=== PATIENT | female | born 1960 | race Caucasian/White ===

== ENCOUNTER 2017-01-29 06:50 | Emergency (ER) | payer OTHER, BC ==
[~2017-01-29] VITALS: Ht 157.5 cm; Wt 109.2 kg
[~2017-01-29 06:50] MED LIST: ADULT LOW DOSE81 M1 PO; ATIVAN1 MG PO; ATIVAN2 MG PO; B12 HEALTH1000 MCG/1 PO; BOTOX100 UNITS IJ; BUMEX0.5 MG PO; BUTRANS1 EAC1 TP; CARDIZEM CD120 MG PO; CEFADROXIL500 MG PO; CELEBREX200 MG PO; CELEBREX50 MG PO; CELEXA40 MG PO; CENTRUM CHEWAB1 EACH PO; CENTRUM COMPLE1 EACH PO; CEPHALEXIN500 MG PO; COLCHICINE; COLCHICINE0.6 MG PO; COLCRYS0.6 MG PO; COREG12.5 M1 PO; COREG25 M1 PO; COREG6.25 MG PO; COUMADIN,JANTOV10 MG PO; COUMADIN10 MG PO; COUMADIN5 M1 IV; COUMADIN5 MG PO; CRESTOR10 MG PO; CYANOCOBAL1000 MCG/2 IM; CYMBALTA30 MG PO; DEPAKOTE ER; DEPAKOTE ER500 MG PO; DEPAKOTE250 MG PO; DEPAKOTE500 MG PO; DIGOXIN125 MCG PO; DURICEF500 MG PO; ELIQUIS2.5 MG PO; ESOMEPRAZOLE MA40 MG PO; FERROUS SULFAT325 MG PO; FIORICET 50-301 EACH PO; FISH OIL; FISH OIL 1,0001 EAC7 PO; FISH OIL SOFTG1 EACH PO; FLEXERIL10 MG PO; FLONASE16 G1 BOTH NARES; HYDROXYCHLOROQUINE; IRON325 MG PO; KCL; LASIX20 MG PO; LASIX40 MG PO; LASIX80 MG PO; LEVSIN0.125 MG PO; LIDODERM 5% P1 PATCH TD; LOTENSIN20 M1 PO; LOTENSIN20 MG PO; LOTENSIN40 MG PO; LOVASTATIN40 MG PO; LOVENOX40 MG/0.4 SC; MIRALAX17 GM PO; MIRALAX255 GM PO; MORPHINE SULFAT15 M1 PO; MOTION SICKNESS25 M4 PO; MOVE IT ALONG100 MG PO; MULTI VITAMIN1 EACH PO; NEXIUM40 MG PO; NORCO 5/3251 TABLET PO; OMEPRAZOLE20 MG PO; OSTERA TABLET1 EACH PO; PLAQUENIL200 MG PO; POTASSIUM CHLO20 MEQ PO; PREVACID30 MG PO; PROMETHAZINE HC25 M1 PO; RISPERDAL0.5 MG PO; RISPERDAL2 MG PO; RISPERIDONE0.5 MG PO; SINGULAIR10 MG PO; SPIRIVA1 INHALATI IH; SPIRONOLACTONE25 MG PO; SYMBICORT60 INHALAT IH; SYNTHROID112 MCG PO; SYNTHROID175 MCG PO; TRAZODONE HCL50 MG PO; TYLENOL EXTRA500 MG PO; VITAMIN B PO; VITAMIN B-1100 MG PO; VITAMIN B1,100 MG/ML IM; VITAMIN D1000 INTUN PO; VITAMIN D3; VITAMIN D31000 UNIT PO; VOLTAREN 1% GE100 GM PO; VOLTAREN 1% GE100 GM TP; Vitamin B-12 PO; WELLBUTRIN XL300 MG PO; ZYRTEC10 M3 PO
[2017-01-29 09:31] LABS: BACTERIA NONE SEEN /HPF; EPITHELIAL CELLS RARE /HPF; MUCUS NONE SEEN /LPF; RED BLOOD CELLS 0-5 /HPF (0-5)
[2017-01-29] MEDS ORDERED: ZOFRAN ODT4 MG PO (10:31)
[2017-01-29] MEDS ORDERED: TYLENOL EXTRA500 MG PO (10:31)
[2017-01-29] MEDS ORDERED: MILK OF MAGN PO (10:31)
[2017-01-29 10:43] VITALS: BP 129/95
== END 2017-01-29 10:43 | disposition home or self-care (01) ==
LOC: EME 06:50
PROVIDERS: Emergency Medicine
DX: K59.00 Constipation, unspecified (principal); K43.9 Ventral hernia without obstruction or gangrene; I11.0 Hypertensive heart disease with heart failure; E78.5 Hyperlipidemia, unspecified; J44.9 Chronic obstructive pulmonary disease, unspecified; J45.909 Unspecified asthma, uncomplicated; Z86.718 Personal history of other venous thrombosis and embolism; Z86.711 Personal history of pulmonary embolism; Z98.84 Bariatric surgery status; Z79.01 Long term (current) use of anticoagulants
CPT/HCPCS: 74020; 80053; 81003; 81015; 83690; 85025; 99281; 99284

== ENCOUNTER 2017-02-10 12:34 | Emergency (ER) | payer OTHER, BC ==
[~2017-02-10] VITALS: Ht 157.5 cm; Wt 110.7 kg
[~2017-02-10 12:34] MED LIST changes: +MILK OF MAGN PO; +ZOFRAN ODT4 MG PO
[2017-02-10] MEDS ORDERED: ENDOCET 5-3251 EACH PO (13:28)
[2017-02-10] MEDS ORDERED: QUETIAPINE FUM300 MG PO (13:28)
[2017-02-10] MEDS ORDERED: GABAPENTIN100 MG PO (13:28)
[2017-02-10 13:29] LABS: HEMATOCRIT 39.9 % (36.0-46.0); MCH 29.7 PG (29.0-34.0); MCHC 32.6 G/DL (30.0-36.0); MCV 91.3 FL (83-99); MEAN PLAT.VOLUME 8.6 uM^3 (9.5-12.4); PLATELET COUNT 267 K/uL (156-360); RBC DIS.WIDTH-SD 43.6 % (39-53); RED BLOOD COUNT 4.37 M/uL (3.80-5.20); WHITE BLOOD COUNT 5.3 K/uL (4.1-10.2)
[2017-02-10] MEDS ORDERED: ZOLPIDEM TARTRA10 MG PO (13:29)
[2017-02-10 13:40] LABS: CHLORIDE 103 mEq/L (99-109); POTASSIUM 3.6 mEq/L (3.7-5.4); SODIUM 141 mEq/L (136-147)
[2017-02-10 13:42] LABS: GLUCOSE 73 mg/dL (70-99)
[2017-02-10 13:44] LABS: ANION GAP 9 MEQ/L (2-14); TOTAL BILIRUBIN 0.4 mg/dL (0.0-1.0)
[2017-02-10 13:47] LABS: ALKALINE PHOSPHATASE 167 IU/L (3-129); GFR ESTIMATE (CALCULATED) > 59 mL/min/; UREA NITROGEN (BUN) 8 mg/dL (9-23)
[2017-02-10 13:50] LABS: INTER. NORMALIZED RATIO 1.1; PROTHROMBIN TIME 12.5 SEC (10.2-12.9)
[2017-02-10 13:53] LABS: PTT 31.6 SEC (25-37)
[2017-02-10 14:01] LABS: ADD MIUA? NO; BILIRUBIN NEGATIVE; BLOOD NEGATIVE; COLOR STRAW ((YELLOW)); GLUCOSE (STRIP) NEGATIVE; KETONES NEGATIVE; LEUKOCYTES NEGATIVE; NITRITE NEGATIVE; PROTEIN (STRIP) NEGATIVE; SPECIFIC GRAVITY 1.002 (1.000-1.030); UCUL ADDED? NO; UROBILINOGEN 0.2 MG/DL (0.2-1.0)
[2017-02-10 14:05] LABS: LIPASE 17 U/L (1.0-51.0)
[2017-02-10 16:16] VITALS: BP 134/90
== END 2017-02-10 16:17 | disposition home or self-care (01) ==
LOC: EME 12:34 → RME 12:34
PROVIDERS: Physician Assistant
DX: K80.20 Calculus of gallbladder without cholecystitis without obstruction (principal); K59.00 Constipation, unspecified; M54.9 Dorsalgia, unspecified; Y99.0 Civilian activity done for income or pay; X50.0XXA Overexertion from strenuous movement or load, initial encounter; Y93.F2 Activity, caregiving, lifting; D68.51 Activated protein C resistance; I11.0 Hypertensive heart disease with heart failure; I50.9 Heart failure, unspecified; E78.5 Hyperlipidemia, unspecified; Z88.0 Allergy status to penicillin; Z88.8 Allergy status to other drugs, medicaments and biological substances; Z98.84 Bariatric surgery status
CPT/HCPCS: 74177; 80053; 81003; 83690; 85027; 85610; 85730; 99281; 99284

== ENCOUNTER 2017-09-13 17:50 | Emergency (ER) | payer BC ==
[~2017-09-13 17:50] MED LIST changes: +ENDOCET 5-3251 EACH PO; +GABAPENTIN100 MG PO; +MULTIVITAM9 MG/15 M1 PO; +QUETIAPINE FUM300 MG PO; +VENTOLIN HFA18 GM IH; +ZOFRAN8 MG PO; +ZOLPIDEM TARTRA10 MG PO; +[UNRECOGNIZED DRUG - OTHER] MM
== END 2017-09-13 19:46 | disposition left against medical advice (07) ==
LOC: EME 17:50
DX: R07.9 Chest pain, unspecified (principal); R06.02 Shortness of breath; Z53.21 Procedure and treatment not carried out due to patient leaving prior to being seen by health care provider
CPT/HCPCS: 93005

== ENCOUNTER 2018-03-22 16:58 | Emergency (ER) | payer BC, OTHER ==
[~2018-03-22] VITALS: Ht 157.5 cm; Wt 117.4 kg
[2018-03-22 18:38] LABS: BASOPHIL (%) 0.9 % (0-1); BASOPHIL COUNT 0.1 K/uL (0-0.1); EOSINOPHIL (%) 5.3 % (0-5); EOSINOPHIL COUNT 0.3 K/uL (0-0.3); HEMATOCRIT 40.9 % (36.0-46.0); HEMOGLOBIN 13.1 G/DL (11.9-15.5); LYMPHOCYTE (%) 34.5 % (15-42); MCH 28.5 PG (29.0-34.0); MCV 88.9 FL (83-99); MONOCYTE (%) 9.2 % (3-12); MONOCYTE COUNT 0.5 K/uL (0-0.8); NEUTROPHIL (%) 49.1 % (45-76); NEUTROPHIL COUNT 2.9 K/uL (1.8-6.4); PLATELET COUNT 317 K/uL (156-360); RBC DIS.WIDTH-CV 13.5 % (11.8-14.6); RBC DIS.WIDTH-SD 43.8 % (39-53); WHITE BLOOD COUNT 5.9 K/uL (4.1-10.2)
[2018-03-22 18:44] LABS: INTER. NORMALIZED RATIO 1.1
[2018-03-22 18:47] LABS: PTT 29.6 SEC (25-37)
[2018-03-22 18:49] LABS: CHLORIDE 100 mEq/L (99-109); POTASSIUM 3.8 mEq/L (3.7-5.4); SODIUM 139 mEq/L (136-147)
[2018-03-22 18:51] LABS: GLUCOSE 91 mg/dL (70-99)
[2018-03-22 18:55] LABS: CREATININE 0.9 mg/dL (0.6-1.3); GFR ESTIMATE (CALCULATED) > 59 mL/min/; UREA NITROGEN (BUN) 14 mg/dL (9-23)
[2018-03-22 19:00] LABS: TROP-I INTERPRETATION NEGATIVE; TROPONIN-I < 0.01 ng/mL (0.0-0.30)
[2018-03-22 20:31] LABS: APPEARANCE CLEAR ((CLEAR)); BILIRUBIN NEGATIVE; BLOOD NEGATIVE; COLOR YELLOW ((YELLOW)); GLUCOSE (STRIP) NEGATIVE; KETONES NEGATIVE; LEUKOCYTES NEGATIVE; NITRITE NEGATIVE; PROTEIN (STRIP) NEGATIVE; SPECIFIC GRAVITY 1.005 (1.000-1.030); UROBILINOGEN 0.2 MG/DL (0.2-1.0)
[2018-03-22 21:43] VITALS: BP 98/66
== END 2018-03-22 22:00 | disposition home or self-care (01) ==
LOC: EME 16:58
PROVIDERS: Nurse Practitioner Family; Physician Assistant
DX: R60.0 Localized edema (principal); J90 Pleural effusion, not elsewhere classified; Z86.718 Personal history of other venous thrombosis and embolism; Z86.711 Personal history of pulmonary embolism; Z79.01 Long term (current) use of anticoagulants; I11.0 Hypertensive heart disease with heart failure; I50.9 Heart failure, unspecified; E78.5 Hyperlipidemia, unspecified; E03.9 Hypothyroidism, unspecified; M06.9 Rheumatoid arthritis, unspecified; M85.80 Other specified disorders of bone density and structure, unspecified site; E53.8 Deficiency of other specified B group vitamins; F31.9 Bipolar disorder, unspecified; F32.9 Major depressive disorder, single episode, unspecified; F41.9 Anxiety disorder, unspecified; Z90.49 Acquired absence of other specified parts of digestive tract; Z98.84 Bariatric surgery status; Z88.0 Allergy status to penicillin; Z88.1 Allergy status to other antibiotic agents; Z88.8 Allergy status to other drugs, medicaments and biological substances
CPT/HCPCS: 71046; 80048; 81003; 83880; 84484; 85025; 85610; 85730; 93005; 93970; 99281; 99285